=== PATIENT | male | born 1945 | race Caucasian/White ===

== ENCOUNTER 2019-10-31 11:23 | Outpatient (CLI) | payer OTHER | END 2019-10-31 12:09 | disposition home or self-care (01) | LOC: NUCLEAR 11:23 | DX: I25.118 Atherosclerotic heart disease of native coronary artery with other forms of angina pectoris (principal); Z95.5 Presence of coronary angioplasty implant and graft | CPT/HCPCS: 78452; 93017; A9500 ==